=== PATIENT | female | born 1965 | race African-American/Black ===

== ENCOUNTER 2018-10-25 08:45 | Emergency (ER) | payer OTHER ==
[2018-10-25] MEDS ORDERED: IBUPROFEN PO ONE (10:24)
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
--- NOTE | 2018-10-25 11:00 | XRay Report ---
CERVICAL SPINE, 3 views: History: Neck pain. Findings: The vertebral bodies, disk spaces, posterior elements and prevertebral soft tissues are unremarkable. The dens is intact. Mild degenerative disc disease at C6-7. No acute fracture or malalignment is identified. Impression: Mild degenerative change at C6-7. No evidence for acute injury to the cervical spine.
--- NOTE | 2018-10-25 11:00 | XRay Report ---
THORACIC SPINE, 2 VIEWS: HISTORY: back pain. Normal bone mineralization. No evidence for compression deformity, malalignment, or bone lesion. The posterior ribs are intact. The paraspinal soft tissues are within normal limits. IMPRESSION: Thoracic spine within normal limits.
[2018-10-25 11:36] VITALS: BP 140/85
== END 2018-10-25 11:35 | disposition home or self-care (01) ==
LOC: ED 08:45
DX: M54.2 Cervicalgia (principal); M54.6 Pain in thoracic spine; K21.9 Gastro-esophageal reflux disease without esophagitis; G43.909 Migraine, unspecified, not intractable, without status migrainosus; V49.49XA Driver injured in collision with other motor vehicles in traffic accident, initial encounter; Y93.89 Activity, other specified; Y92.89 Other specified places as the place of occurrence of the external cause; Y99.8 Other external cause status
CPT/HCPCS: 72040; 72072